=== PATIENT | female | born 1960 | race Caucasian/White ===

== ENCOUNTER 2025-06-03 09:50 | Emergency (ER) | payer OTHER, MEDICARE, BC ==
[2025-06-03] MEDS: Ondansetron 4 MG/2 ML SDV IVPUSH ONE (11:20)
[2025-06-03] MEDS: fentaNYL 50 MCG/ML SDV IVPUSH ONE (11:24)
== END 2025-06-03 12:57 | disposition home or self-care (01) ==
LOC: JP.ED 09:50
DX: S06.0X0A Concussion without loss of consciousness, initial encounter (principal); S70.02XA Contusion of left hip, initial encounter; Z88.8 Allergy status to other drugs, medicaments and biological substances; Z79.899 Other long term (current) drug therapy; V28.49XA Other motorcycle driver injured in noncollision transport accident in traffic accident, initial encounter
CPT/HCPCS: 70450; 96361; 96374; 96375; 99283; 99284; J2405; J3010; J7030